=== PATIENT | male | born 1945 | race Caucasian/White ===

== ENCOUNTER 2016-05-06 09:07 | Emergency (ER) | payer MEDICARE ==
[~2016-05-06] VITALS: Wt 84.8 kg
[~2016-05-06 09:07] MED LIST: AGGRENOX 25 MG-1 CER PO; ANDRODERM2 MG/24 HR TD; CARBIDOPA AND L1 TA2 PO; COLACE100 M1 PO; DITROPAN 5MG TAB5 MG PO; LEADER PAIN RE500 M1 PO; LISINOPRIL10 MG PO; MIRALAX17 GM PO; MULTIVITAMIN1 SGL PO; NAPROXEN250 MG PO; SERTRALINE PO; SYNTHROID0.075 MG/T PO; ULTRAM50 M1 PO
[2016-05-06] MEDS ORDERED: BACTRIM 400 MG-1 TA1 PO (10:22)
[2016-05-06] MEDS ORDERED: MORPHINE S10 MG/0.5 PO (10:33)
[2016-05-06 10:54] VITALS: BP 94/56
== END 2016-05-06 10:51 | disposition home or self-care (01) ==
LOC: ED 09:07
DX: R06.00 Dyspnea, unspecified (principal); J18.9 Pneumonia, unspecified organism; G20 Parkinson's disease; I69.351 Hemiplegia and hemiparesis following cerebral infarction affecting right dominant side; Z79.82 Long term (current) use of aspirin
CPT/HCPCS: A4340; J1940